=== PATIENT | female | born 2000 | race Caucasian/White ===

== ENCOUNTER 2018-08-15 12:30 | Inpatient (IN) | payer BC, OTHER ==
[2018-08-15] MEDS ORDERED: SODIUM CHLORIDE 0.9% 1,000 ML IV STA (13:14)
--- NOTE | 2018-08-15 13:19 | ED ---
General Adult HPI - General Chief complaint: Seizure Stated complaint: Seizure Source: family, EMS Mode of arrival: EMS Limitations: no limitations - History of Present Illness Initial comments: Dictation was produced using [employer] dictation software. please excuse any grammatical, word or spelling errors. Chief Complaint: 18-year-old female with past medical history of autism and hypercholesterolemia presents with episode of possible seizure. History of Present Illness: Patient's 18-year-old female presents with possible seizure. Patient's past medical history of autism. She takes Haldol and Adderall to control her symptoms. Patient does not have a history of seizures. Patient is not taking other medications. She was at home at her grandmother' s house when she was eating. She was sitting watching TV when she was noted to have several minute episode of staring off at the TV with convulsions of the right upper extremity. Patient was unconscious at that time. She did not fall. EMS was called. Patient's seizure-like activity spontaneously stopped. Patient is accompanied by family members. They note that she has not had any recent symptoms in the last 2-3 days. Patient otherwise has been at baseline. Patient has no complaints at this time. She does feel her baseline. The ROS documented in this emergency department record has been reviewed and confirmed by me. Those systems with pertinent positive or negative responses have been documented in the HPI. All other systems are other negative and/or noncontributory. PHYSICAL EXAM: General Impression: Alert and oriented x3, not in acute distress HEENT: Normocephalic atraumatic, extra-ocular movements intact, pupils equal and reactive to light bilaterally, mucous membranes moist. Cardiovascular: Heart regular rate and rhythm, S1&S2 audible, no murmurs, rubs or gallops Chest: Lungs clear to auscultation bilaterally, no rhonchi, no wheeze, no rales Abdomen: Bowel sounds present, abdomen soft, non-tender, non-distended, no organomegaly Musculoskeletal: Pulses present and equal in all extremities, no peripheral edema Motor: Power 5/5 bilaterally, no focal deficits noted Neurological: CN II-XII grossly intact, no focal motor or sensory deficits noted Skin: Intact with no visualized rashes Psych: Normal affect and mood ED course: 18 yo female past medical history of autism presents with clinical presentation consistent with new-onset seizure. All signs upon arrival shows tachycardia 124, rest of vital signs within normal limits. No neuro deficits noted. - Related Data Home Medications Medication Instructions Recorded Confirmed Calcium Carbonate [Calcium] 600 mg PO DAILY 08/15/18 08/15/18 Cyanocobalamin (Vitamin B-12) 1,000 mcg PO DAILY 08/15/18 08/15/18 [Vitamin B-12] Dextroamphetamine/Amphetamine 60 mg PO QAM 08/15/18 08/15/18 [Adderall Xr] Dextroamphetamine/Amphetamine 15 mg PO DAILY@1200 08/15/18 08/15/18 [Adderall] Diazepam 2 mg PO DAILY PRN 08/15/18 08/15/18 FLUoxetine HCL 40 mg PO HS 08/15/18 08/15/18 Iron 18 mg PO DAILY 08/15/18 08/15/18 Multivitamin [Multivitamins Adult 1 tab PO DAILY 08/15/18 08/15/18 Gummies] risperiDONE [RisperDAL] 2 mg PO BID 08/15/18 08/15/18 Allergies Allergy/AdvReac Type Severity Reaction Status Date / Time No Known Allergies Allergy Verified 08/15/18 14:18 Review of Systems ROS Statement: Those systems with pertinent positive or pertinent negative responses have been documented in the HPI. ROS Other: All systems not noted in ROS Statement are negative. Past Medical History Past Medical History: Hyperlipidemia Additional Past Medical History / Comment(s): autistic History of Any Multi-Drug Resistant Organisms: None Reported Past Surgical History: No Surgical Hx Reported Additional Past Surgical History / Comment(s): lip surgery. Past Psychological History: No Psychological Hx Reported Smoking Status: Never smoker Past Alcohol Use History: None Reported Past Drug Use History: None Reported General Exam Limitations: no limitations Course Vital Signs 08/15/18 12:32 Temperature 97.6 F Pulse Rate 124 H Respiratory 18 Rate Blood Pressure 112/68 O2 Sat by Pulse 96 Oximetry Medical Decision Making - Medical Decision Making Laboratory evaluation obtained. CBC, metabolic panel, urinalysis unremarkable. Computed tomography scan of the head is unremarkable. EKG is unremarkable. Patient be admitted for new onset seizure. Given history of mental developmental disability there is strong suspicion that she will need initiation of antiepileptic medications. Currently patient in stable medical condition. Neurology. Consult. EKG interpretation: Ventricular rate 90, normal sinus rhythm,. Interval 170, QRS 84, QTC 455. No [place] prolongation, no QTC prolongation, no ST or T-wave changes noted. Overall, this EKG is unremarkable - Lab Data Result diagrams: 08/15/18 13:25 08/15/18 13:25 Lab Results 08/15/18 08/15/18 08/15/18 Range/Units 13:25 13:25 15:43 WBC 5.2 (4.0-11.0) k/uL RBC 3.92 (3.80-5.40) m/uL Hgb 11.9 (11.4-16.0) gm/dL Hct 36.3 (34.0-46.0) % MCV 92.8 (80.0-100.0) fL MCH 30.3 (25.0-35.0) pg MCHC 32.7 (31.0-37.0) g/dL RDW 12.9 (11.5-15.5) % Plt Count 308 (150-450) k/uL Neutrophils % 61 % Lymphocytes % 25 % Monocytes % 6 % Eosinophils % 6 % Basophils % 0 % Neutrophils # 3.2 (1.3-7.7) k/uL Lymphocytes # 1.3 (1.0-4.8) k/uL Monocytes # 0.3 (0-1.0) k/uL Eosinophils # 0.3 (0-0.7) k/uL Basophils # 0.0 (0-0.2) k/uL Sodium 140 (137-145) mmol/L Potassium 4.3 (3.5-5.1) mmol/L Chloride 103 (98-107) mmol/L Carbon Dioxide 27 (22-30) mmol/L Anion Gap 10 mmol/L BUN 10 (7-17) mg/dL Creatinine 0.63 (0.52-1.04) mg/dL Est GFR (CKD-EPI)AfAm >90 (>60 ml/min/1.73 sqM) Est GFR (CKD-EPI)NonAf >90 (>60 ml/min/1.73 sqM) Glucose 103 H (74-99) mg/dL Calcium 9.8 (8.4-10.2) mg/dL Total Bilirubin 0.4 (0.2-1.3) mg/dL AST 25 (14-36) U/L ALT 27 (9-52) U/L Alkaline Phosphatase 68 (38-126) U/L Total Protein 7.0 (6.3-8.2) g/dL Albumin 4.3 (3.5-5.0) g/dL Urine Color Yellow Urine Appearance Turbid H (Clear) Urine pH 7.0 (5.0-8.0) Ur Specific [place] 1.017 (1.001-1.035) Urine Protein Trace H (Negative) Urine Glucose (UA) Negative (Negative) Urine Ketones Negative (Negative) Urine Blood Negative (Negative) Urine Nitrite Negative (Negative) Urine Bilirubin Negative (Negative) Urine Urobilinogen <2.0 (<2.0) mg/dL Ur Leukocyte Esterase Negative (Negative) Ur Squamous Epith Cells 8 H (0-4) /hpf Amorphous Sediment Few H (None) /hpf Hyaline Casts 35 H (0-2) /lpf Urine Mucus Many H (None) /hpf Disposition Clinical Impression: New onset seizure Disposition: ADMITTED IP TO THIS [facility] Condition: Fair Referrals: Jaskaran Merrill MD [Primary Care Provider] - 1-2 days Decision Time: 16:23
[2018-08-15 13:39] LABS: Basophils % (A) 0 %; Eosinophils # (A) 0.3 k/uL (0-0.7); Eosinophils % (A) 6 %; HCT 36.3 % (34.0-46.0); HGB 11.9 gm/dL (11.4-16.0); Lymphocytes # (A) 1.3 k/uL (1.0-4.8); Lymphocytes % (A) 25 %; MCH 30.3 pg (25.0-35.0); MCHC 32.7 g/dL (31.0-37.0); MCV 92.8 fL (80.0-100.0); Mean Platelet Volume 6.5; Monocytes # (A) 0.3 k/uL (0-1.0); Monocytes % (A) 6 %; Neutrophils # (A) 3.2 k/uL (1.3-7.7); Neutrophils % (A) 61 %; Platelet Count 308 k/uL (150-450); RBC 3.92 m/uL (3.80-5.40); RDW 12.9 % (11.5-15.5); WBC 5.2 k/uL (4.0-11.0)
[2018-08-15 13:54] LABS: ALT 27 U/L (9-52); AST 25 U/L (14-36); Albumin 4.3 g/dL (3.5-5.0); Alkaline Phosphatase 68 U/L (38-126); Anion Gap 10 mmol/L; Blood Urea Nitrogen 10 mg/dL (7-17); Calcium 9.8 mg/dL (8.4-10.2); Carbon Dioxide 27 mmol/L (22-30); Chloride 103 mmol/L (98-107); Glucose 103 mg/dL (74-99); Potassium 4.3 mmol/L (3.5-5.1); Sodium 140 mmol/L (137-145); Total Bilirubin 0.4 mg/dL (0.2-1.3)
--- NOTE | 2018-08-15 14:23 | CT ---
EXAMINATION TYPE: CT brain wo con DATE OF EXAM: 08/15/2018 COMPARISON: None HISTORY: seizure CT DLP: 1064.[address] of the brain was performed. The ventricles, basal cisterns and sulci overlying the cerebral convexities demonstrate a normal appe arance. There is no evidence for intracranial hemorrhage or sulcal effacement. No mass effects are seen. Osseous calvarium is intact. If symptoms persist consider MRI as clinically warranted. IMPRESSION: 1. No acute intracranial process is seen at this time.
[2018-08-15 16:13] LABS: Amorphous Sediment,Urine Few /hpf; Appearance,Urine Turbid (Clear); Bilirubin,Urine Negative (Negative); Blood,Urine Negative (Negative); Color,Urine Yellow; Glucose,Urine (UA) Negative (Negative); Hyaline Casts,Urine 35 /lpf (0-2); Ketones,Urine Negative (Negative); Leukocyte Esterase,Urine Negative (Negative); Mucus,Urine Many /hpf; Nitrite,Urine Negative (Negative); Protein,Urine Trace (Negative); Specific Gravity,Urine 1.017 (1.001-1.035); Squamous Epithelial Cell,Urine 8 /hpf (0-4); Urobilinogen,Urine <2.0 mg/dL (<2.0)
[2018-08-15] MEDS ORDERED: NALOXONE 0.4 MG/ML 1 ML VIAL IV PRN (16:20)
[2018-08-15] MEDS ORDERED: LORazepam 2 MG/ML INJ IV PRN (16:21)
[2018-08-15] MEDS ORDERED: ACETAMINOPHEN TAB 500 MG TAB PO PRN (16:50)
--- NOTE | 2018-08-15 18:35 | P.CNNES ---
History of Present Illness Consult date: 08/15/18 History of Present Illness: The patient is a 18-year-old woman with autism who presents to the hospital with new onset seizure. Her parents are at her bedside. They state that her uncle witnessed a seizure event. The patient was watching television when suddenly she stared off and her arms stiffened. She was unresponsive for a few minutes. EMS was called and she was brought to [facility]. The patient takes Haldol and Adderall and her mother reports that she normally gives her Adderall 60 mg every morning and 15 mg at noon. She has no history of seizures. Is no history of staring episodes. There was no oral trauma or incontinence. Patient has been on Trileptal up to 1 year ago when this was discontinued. It was given for mood disorder. He had a CT of the brain in the emergency room which did not show any acute process. She denies any headache dizziness weakness or any other neurologic complaint. Review of Systems ROS unobtainable: due to mental status Past Medical History Past Medical History: Hyperlipidemia Additional Past Medical History / Comment(s): autistic, has has first hepatitis A shot History of Any Multi-Drug Resistant Organisms: None Reported Past Surgical History: No Surgical Hx Reported Additional Past Surgical History / Comment(s): sx on lip at age 1 and 1 Past Anesthesia/Blood Transfusion Reactions: No Reported Reaction Smoking Status: Never smoker - Past Family History Mother Family Medical History: Asthma Father Family Medical History: No Reported History Medications and Allergies Home Medications Medication Instructions Recorded Confirmed Type Calcium Carbonate [Calcium] 600 mg PO DAILY 08/15/18 08/15/18 History Cyanocobalamin (Vitamin B-12) 1,000 mcg PO DAILY 08/15/18 08/15/18 History [Vitamin B-12] Dextroamphetamine/Amphetamine 60 mg PO QAM 08/15/18 08/15/18 History [Adderall Xr] Dextroamphetamine/Amphetamine 15 mg PO DAILY@1200 08/15/18 08/15/18 History [Adderall] Diazepam 2 mg PO DAILY PRN 08/15/18 08/15/18 History FLUoxetine HCL 40 mg PO HS 08/15/18 08/15/18 History Iron 18 mg PO DAILY 08/15/18 08/15/18 History Multivitamin [Multivitamins Adult 1 tab PO DAILY 08/15/18 08/15/18 History Gummies] risperiDONE [RisperDAL] 2 mg PO BID 08/15/18 08/15/18 History Allergies Allergy/AdvReac Type Severity Reaction Status Date / Time No Known Allergies Allergy Verified 08/15/18 14:18 Physical Examination - Vital Signs Vital Signs: Vital Signs Temp Pulse Resp BP Pulse Ox 08/15/18 16:54 103 H 16 116/78 100 08/15/18 15:30 90 12 98 08/15/18 13:30 118 H 20 107/70 97 08/15/18 13:00 107/69 96 08/15/18 12:47 98 08/15/18 12:32 97.6 F 124 H 18 112/68 96 Intake and Output 08/15/18 08/15/18 08/15/18 06:59 14:59 22:59 Other: Weight 69.4 kg - Constitutional General appearance: average body habitus, cooperative - Respiratory Respiratory: lungs clear - Cardiovascular Cardiovascular: regular rate, normal S1 - Neurologic Neurologic examination: Mental status she was awake she was alert she was oriented to person she was able to follow commands there is no a aphasia or dysarthria next Cranial nerve examination: Cranial nerves II through XII grossly intact next Motor examination: 5 out of 5 throughout Sensory examination: Intact to light touch Deep tendon reflexes: 2+ and symmetric next Gait: Not tested Results - Laboratory Findings CBC and BMP: 08/15/18 13:25 08/15/18 13:25 Abnormal Lab Findings: Abnormal Labs 08/15/18 08/15/18 13:25 15:43 Glucose 103 H Urine Appearance Turbid H Urine Protein Trace H Ur Squamous Epith Cells 8 H Amorphous Sediment Few H Hyaline Casts 35 H Urine Mucus Many H Assessment and Plan (1) New onset seizure Current Visit: Yes Status: Acute SNOMED Code(s): 42884885 Plan: The patient is a 18-year-old woman with history of new onset seizure. This is her first seizure. She is on a stimulant, Adderall. Recommend MRI of the brain as well as an EEG. Recommend gradual discontinuation of Adderall which can be done outpatient by her family doctor. Discussed with the parents options of treatment versus nontreatment at this time. Since this is her first seizure we can wait and see if she has a second seizure. Also it's possible that Adderall may have induced a seizure. Further recommendations based on results of MRI and EEG
--- NOTE | 2018-08-15 21:20 | MR ---
EXAMINATION TYPE: MR brain wo con DATE OF EXAM: 08/15/2018 COMPARISON: None HISTORY: New onset seizure, pt is autistic Standard multiplanar, multisequence MRI departmental protocol Multiplanar, multisequence images of the were acquired. Diffusion weighted imaging was performed. FINDINGS: Ventricles and sulci appear normal. There is no mass effect nor midline shift. There is no sign of intracranial hemorrhage. Orozco-white matter structures have fairly normal signal pattern. Ther e is no evidence of cerebral edema. Brainstem appears normal. Corpus callosum appears normal. Sella t urcica is normal. Cerebellum appears normal. There is no evidence of cortical infarct. IMPRESSION: Normal MR scan of the brain.
[2018-08-16 01:05] VITALS: RESP 20; TEMP 98
[2018-08-16 07:36] VITALS: BP 112/70; PULSE 101
[2018-08-16] MEDS ORDERED: DIAZEPAM 2 MG TAB PO PRN (08:42)
[2018-08-16] MEDS ORDERED: risperiDONE 2 MG TAB PO SCH (09:00)
[2018-08-16] MEDS ORDERED: AMPHETAMINE PO SCH (10:15)
[2018-08-16] MEDS ORDERED: DEXTROAMPHETAMINE PO SCH (10:15)
--- NOTE | 2018-08-16 14:26 | P.HPIM ---
History of Present Illness H&P Date: 08/16/18 Chief Complaint: Seizure HISTORY AND PHYSICAL AND DISCHARGE SUMMARY: This is a 18-year-old female patient of Dr. Merrill with past medical history of autism, hyperlipidemia. Apparently patient was watching TV and started having convulsions on the right upper extremity and was staring off for several minutes. Patient was unconscious at that time, no fall or injury. There was no incontinence or oral trauma EMS was contacted Patient presented to [facility] emergency center for evaluation. Her vital signs were all stable except she was tachycardic on presentation. CBC was within normal limits, CMP was normal except for glucose of 103. Urinalysis was turbid with nitrate and leukoesterase negative, hyaline casts 35, epithelial cells 8. EKG was a sinus rhythm with no acute ST-T wave changes. CAT scan of the brain showed no acute process. Patient was given a dose of Ativan, IV fluids and admitted to the [facility] floor and consult requested with neurology. Patient has been seen by Dr. Barboza with recommendations for MRI, EEG and gradually discontinue Adderall which can be done as an outpatient by her family doctor. Since this is her first seizure and it is possible that Adderall may have induced seizure, may hold on anti-seizure medication. MRI of the brain came back normal. Plan is to discontinue her afternoon Adderall dose for now and continue the Adderall XR only as scheduled in the morning. Patient has been seizure free since admission. Patient will be discharged home today in stable condition. Discharge Medication List Calcium Carbonate [Calcium] 600 mg PO DAILY 08/15/18 [History] Cyanocobalamin (Vitamin B-12) [Vitamin B-12] 1,000 mcg PO DAILY 08/15/18 [ History] Dextroamphetamine/Amphetamine [Adderall Xr] 60 mg PO QAM 08/15/18 [History] Diazepam 2 mg PO DAILY PRN 08/15/18 [History] FLUoxetine HCL 40 mg PO HS 08/15/18 [History] Iron 18 mg PO DAILY 08/15/18 [History] Multivitamin [Multivitamins Adult Gummies] 1 tab PO DAILY 08/15/18 [History] risperiDONE [RisperDAL] 1 mg PO 1700 08/15/18 [History] risperiDONE [RisperDAL] 2 mg PO DAILY 08/15/18 [History] Review of Systems ROS unobtainable: due to mental status Past Medical History Past Medical History: Hyperlipidemia Additional Past Medical History / Comment(s): autistic, has has first hepatitis A shot History of Any Multi-Drug Resistant Organisms: None Reported Past Surgical History: No Surgical Hx Reported Additional Past Surgical History / Comment(s): sx on lip at age 1 and 1 Past Anesthesia/Blood Transfusion Reactions: No Reported Reaction Smoking Status: Never smoker - Past Family History Mother Family Medical History: Asthma Father Family Medical History: No Reported History Medications and Allergies Home Medications Medication Instructions Recorded Confirmed Type Calcium Carbonate [Calcium] 600 mg PO DAILY 08/15/18 08/15/18 History Cyanocobalamin (Vitamin B-12) 1,000 mcg PO DAILY 08/15/18 08/15/18 History [Vitamin B-12] Dextroamphetamine/Amphetamine 60 mg PO QAM 08/15/18 08/15/18 History [Adderall Xr] Diazepam 2 mg PO DAILY PRN 08/15/18 08/15/18 History FLUoxetine HCL 40 mg PO HS 08/15/18 08/15/18 History Iron 18 mg PO DAILY 08/15/18 08/15/18 History Multivitamin [Multivitamins Adult 1 tab PO DAILY 08/15/18 08/15/18 History Gummies] risperiDONE [RisperDAL] 1 mg PO 1700 08/15/18 08/15/18 History risperiDONE [RisperDAL] 2 mg PO DAILY 08/15/18 08/15/18 History Allergies Allergy/AdvReac Type Severity Reaction Status Date / Time No Known Allergies Allergy Verified 08/15/18 14:18 Physical Exam Vitals: Vital Signs Temp Pulse Pulse Resp BP BP Pulse Ox 08/16/18 07:00 98.0 F 101 H 20 112/70 95 08/15/18 23:00 98.0 F 100 20 101/62 96 08/15/18 16:54 103 H 16 116/78 100 08/15/18 15:30 90 12 98 08/15/18 13:30 118 H 20 107/70 97 08/15/18 13:00 107/69 96 08/15/18 12:47 98 08/15/18 12:32 97.6 F 124 H 18 112/68 96 Intake and Output 0108/16/18 08/16/18 22:59 06:59 14:59 Intake Total 400 475 Balance 400 475 Intake: Oral 400 475 Other: # Voids 1 2 Gen: This is a 18-year-old female. She is resting in bed appears to be comfortable and in no acute distress. HEENT: Head is atraumatic, normocephalic. Pupils equal, round. Sclerae is anicteric. NECK: Supple. No JVD. No lymphadenopathy. No thyromegaly. LUNGS: Clear to auscultation. No wheezes or rhonchi. No intercostal retractions. HEART: Regular rate and rhythm. No murmur. ABDOMEN: Soft. Bowel sounds are present. No masses. No tenderness. EXTREMITIES: No pedal edema. No calf tenderness. NEUROLOGICAL: Patient is awake, alert and oriented x3. Cranial nerves 2 through 12 are grossly intact. Results CBC & Chem 7: 08/15/18 13:25 08/15/18 13:25 Labs: Abnormal Lab Results - Last 24 Hours (Table) 08/15/18 08/15/18 Range/Units 13:25 15:43 Glucose 103 H (74-99) mg/dL Urine Appearance Turbid H (Clear) Urine Protein Trace H (Negative) Ur Squamous Epith Cells 8 H (0-4) /hpf Amorphous Sediment Few H (None) /hpf Hyaline Casts 35 H (0-2) /lpf Urine Mucus Many H (None) /hpf Thrombosis Risk Factor Assmnt - DVT/VTE Prophylaxis DVT/VTE Prophylaxis: Mechanical Prophylaxis ordered - Choose All That Apply Any of the Below Risk Factors Present?: No Assessment and Plan Plan: 1. First-time seizure possibly induced by Adderall. CT of the brain, MRI as above. EEG pending. Consult with neurology appreciated. Patient to be weaned off Adderall as an outpatient. 2. Autism, stable. Continue Prozac 40 mg at bedtime, Risperdal 2 mg daily and 1 mg at 5 PM, Valium 2 mg daily as needed for anxiety. 3. Hyperlipidemia, stable Patient will be admitted to the hospital for a minimum of 1 night stay. Discharge plan: Return home Impression and plan of care have been directed as dictated by the signing physician. Jessica Mendes nurse practitioner acting as scribe for signing physician.
[2018-08-16] MEDS ORDERED: risperiDONE 1 MG TAB PO SCH (17:00)
--- NOTE | 2018-08-16 17:59 | EEG ---
ELECTROENCEPHALOGRAM REPORT DATE OF EE08/16/2018 ELECTROENCEPHALOGRAPHIC EXAMINATION REPORT: INDICATION FOR EXAMINATION: This patient is a 18-year-old female being evaluated for new-onset seizures. Patient had episode of unresponsiveness for several minutes. Patient has history of autism. AGE: [age]. EEG FINDINGS: A routine 21-channel awake digital EEG recording was accomplished utilizing the 10-20 international system with bipolar and referential montages. The background activity in the most alert resting state consists of a low to medium amplitude, fairly well developed and well sustained 7 Hz activity over the posterior head regions. This posterior rhythm attenuates to eye opening. There is a moderate amount of low amplitude 18-20 Hz beta activity seen maximally over the anterior head regions. Muscle and movement artifact was observed on several occasions during the tracing. Hyperventilation failed to add any additional information to the tracing. No further activation was noted. Photic stimulation at flash frequencies of 2-30 Hz produced a minimal occipital driving response. The main feature of this tracing is the occurrence on several epochs of small temporal sharp waves in the left hemisphere. This is noted during photic stimulation as well. Occasional right temporal sharp wave was also noted. IMPRESSION: This EEG is abnormal due to the occurrence of left temporal sharp waves suggesting probable underlying seizure disorder of deep level origin. If clinically indicated, a follow-up EEG is recommended. Clinical correlation is recommended. MMODL / IJN: [id number] /
[2018-08-16] MEDS ORDERED: FLUoxetine HCL 20 MG CAP PO SCH (21:00)
== END 2018-08-16 13:28 | disposition home or self-care (01) | DRG 101 ==
LOC: EEVIPCON 12:30 → EC 12:30 → 4MS4W 16:20
PROVIDERS: ADMIT Internal Medicine; ATTEND Internal Medicine
DX: R56.9 Unspecified convulsions (principal); F84.0 Autistic disorder; T43.625A Adverse effect of amphetamines, initial encounter; E78.00 Pure hypercholesterolemia, unspecified; E78.5 Hyperlipidemia, unspecified; Z79.899 Other long term (current) drug therapy; Z82.5 Family history of asthma and other chronic lower respiratory diseases
CPT/HCPCS: 36415; 70450; 70551; 80053; 81001; 85025; 93005; 95816; 96360; 99285

== ENCOUNTER 2022-04-23 09:39 | Emergency (ER) | payer BC, OTHER ==
[2022-04-23 09:51] VITALS: TEMP 98.6
[2022-04-23] MEDS ORDERED: levETIRAcetam IV 1,000 MG in SALINE 1 100ML.BAG IVPB STA (09:53)
--- NOTE | 2022-04-23 09:55 | ED ---
General Adult HPI - General Chief complaint: Seizure Stated complaint: seizure Time Seen by Provider: 04/23/22 09:42 Source: patient, family, EMS, RN notes reviewed Mode of arrival: EMS Limitations: no limitations - History of Present Illness Initial comments: Patient is a pleasant 21-year-old female presenting to the emergency Department with witnessed seizure. Episode lasted less than 5 minutes with generalized tonic-clonic activity. Mother provides majority of history. Patient does have history of learning disability similar to autism. Patient states she feels fine at this time and has no complaints. Other confirms that she is acting normal at this time. Patient was a little bit confused following the episode. No injury. Patient does have history of presumed a seizure around 6 years ago that is described similar to an absence seizure however only had one. Patient was previously on anticonvulsant medication however this has been discontinued. - Related Data Home Medications Medication Instructions Recorded Confirmed Calcium Carbonate [Calcium] 600 mg PO DAILY 08/15/18 08/15/18 Cyanocobalamin (Vitamin B-12) 1,000 mcg PO DAILY 08/15/18 08/15/18 [Vitamin B-12] Dextroamphetamine/Amphetamine 60 mg PO QAM 08/15/18 08/15/18 [Adderall Xr] FLUoxetine HCL 40 mg PO HS 08/15/18 08/15/18 Iron 18 mg PO DAILY 08/15/18 08/15/18 Multivitamin [Multivitamins Adult 1 tab PO DAILY 08/15/18 08/15/18 Gummies] diazePAM 2 mg PO DAILY PRN 08/15/18 08/15/18 risperiDONE [RisperDAL] 1 mg PO 1700 08/15/18 08/15/18 risperiDONE [RisperDAL] 2 mg PO DAILY 08/15/18 08/15/18 Allergies Allergy/AdvReac Type Severity Reaction Status Date / Time No Known Allergies Allergy Verified 08/15/18 14:18 Review of Systems ROS Statement: Those systems with pertinent positive or pertinent negative responses have been documented in the HPI. ROS Other: All systems not noted in ROS Statement are negative. Constitutional: Denies: fever Eyes: Denies: eye pain ENT: Denies: ear pain Respiratory: Denies: cough Cardiovascular: Denies: chest pain, palpitations Endocrine: Denies: fatigue Gastrointestinal: Denies: abdominal pain Genitourinary: Denies: dysuria Musculoskeletal: Denies: back pain Skin: Denies: rash Neurological: Reports: as per HPI. Denies: headache, weakness, confusion Past Medical History Past Medical History: Hyperlipidemia Additional Past Medical History / Comment(s): autistic, has has first hepatitis A shot History of Any Multi-Drug Resistant Organisms: None Reported Past Surgical History: No Surgical Hx Reported Additional Past Surgical History / Comment(s): sx on lip at age 1 and 1 Past Anesthesia/Blood Transfusion Reactions: No Reported Reaction Past Psychological History: No Psychological Hx Reported Smoking Status: Never smoker Past Alcohol Use History: None Reported Past Drug Use History: None Reported - Past Family History Mother Family Medical History: Asthma Father Family Medical History: No Reported History General Exam Limitations: no limitations General appearance: alert, in no apparent distress Head exam: Present: atraumatic Eye exam: Present: normal appearance, PERRL, EOMI ENT exam: Present: normal oropharynx Neck exam: Present: normal inspection. Absent: tenderness Respiratory exam: Present: normal lung sounds bilaterally Cardiovascular Exam: Present: regular rate, normal rhythm GI/Abdominal exam: Present: soft. Absent: tenderness Extremities exam: Present: normal inspection Neurological exam: Present: alert, oriented X3, CN II-XII intact. Absent: motor sensory deficit Expanded Neurological exam: Present: protecting the airway Patient oriented to: Present: person, place, time Speech: Present: fluid speech Cranial nerves: EOM's Intact: Normal Motor strength exam: RUE: 5, LUE: 5, RLE: 5, LLE: 5 Eye Response: (4) open spontaneously Motor Response: (6) obeys commands Verbal Response: (5) oriented Psychiatric exam: Present: normal affect, normal mood Skin exam: Present: normal color Course Vital Signs 04/23/22 09:42 Temperature 98.6 F Pulse Rate 110 H Respiratory 16 Rate Blood Pressure 119/76 O2 Sat by Pulse 98 Oximetry - Reevaluation(s) Reevaluation #1: 04/23/22 11:03 Patient reevaluated and resting comfortably in bed, exam unchanged. Family re quests ox ramona which patient previously has been on rather than Keppra and they do have available. They will provided at this time. They also do see Dr. Barboza for neurologist and would like to go home if testing is otherwise negative as patient has been through this previously. They are confident they can do close follow-up. EKG Findings - EKG Comments: EKG Findings:: Sinus tachycardia 100. ME 148. QRS 89. QT 349. QTC 406. Normal axis. Normal QRS. No acute ST change. Medical Decision Making - Medical Decision Making Patient again reevaluated. Patient and family updated. - Lab Data Result diagrams: 04/23/22 09:58 04/23/22 09:58 Lab Results 04/23/22 04/23/22 04/23/22 Range/Units 09:58 09:58 09:58 WBC 4.6 (3.8-10.6) k/uL RBC 3.96 (3.80-5.40) m/uL Hgb 12.5 (11.4-16.0) gm/dL Hct 38.3 (34.0-46.0) % MCV 96.8 (80.0-100.0) fL MCH 31.6 (25.0-35.0) pg MCHC 32.7 (31.0-37.0) g/dL RDW 12.8 (11.5-15.5) % Plt Count 291 (150-450) k/uL MPV 7.6 Neutrophils % 48 % Lymphocytes % 36 % Monocytes % 6 % Eosinophils % 8 % Basophils % 1 % Neutrophils # 2.2 (1.3-7.7) k/uL Lymphocytes # 1.7 (1.0-4.8) k/uL Monocytes # 0.3 (0-1.0) k/uL Eosinophils # 0.4 (0-0.7) k/uL Basophils # 0.0 (0-0.2) k/uL Sodium 139 (137-145) mmol/L Potassium 3.9 (3.5-5.1) mmol/L Chloride 104 (98-107) mmol/L Carbon Dioxide 22 (22-30) mmol/L Anion Gap 13 mmol/L BUN 6 L (7-17) mg/dL Creatinine 0.57 (0.52-1.04) mg/dL Est GFR (CKD-EPI)AfAm >90 (>60 ml/min/1.73 sqM) Est GFR (CKD-EPI)NonAf >90 (>60 ml/min/1.73 sqM) Glucose 107 H (74-99) mg/dL Calcium 9.2 (8.4-10.2) mg/dL Magnesium 2.1 (1.6-2.3) mg/dL Total Bilirubin 0.6 (0.2-1.3) mg/dL AST 22 (14-36) U/L ALT 14 (4-34) U/L Alkaline Phosphatase 58 (38-126) U/L Total Protein 6.5 (6.3-8.2) g/dL Albumin 4.5 (3.5-5.0) g/dL Urine Color Light Yellow Urine Appearance Clear (Clear) Urine pH 5.5 (5.0-8.0) Ur Specific [place] 1.017 (1.001-1.035) Urine Protein 1+ H (Negative) Urine Glucose (UA) Negative (Negative) Urine Ketones 1+ H (Negative) Urine Blood Negative (Negative) Urine Nitrite Negative (Negative) Urine Bilirubin Negative (Negative) Urine Urobilinogen <2.0 (<2.0) mg/dL Ur Leukocyte Esterase Negative (Negative) Urine RBC 1 (0-5) /hpf Urine WBC 1 (0-5) /hpf Ur Squamous Epith Cells 2 (0-4) /hpf Urine Bacteria Rare H (None) /hpf Hyaline Casts 4 H (0-2) /lpf Urine Mucus Rare H (None) /hpf Urine Opiates Screen Not Detected (NotDetected) Ur Oxycodone Screen Not Detected (NotDetected) Urine Methadone Screen Not Detected (NotDetected) Ur Propoxyphene Screen Not Detected (NotDetected) Ur Barbiturates Screen Not Detected (NotDetected) U Tricyclic Antidepress Not Detected (NotDetected) Ur Phencyclidine Scrn Not Detected (NotDetected) Ur Amphetamines Screen Detected H (NotDetected) U Methamphetamines Scrn Not Detected (NotDetected) U Benzodiazepines Scrn Not Detected (NotDetected) Urine Cocaine Screen Not Detected (NotDetected) U Marijuana (THC) Screen Not Detected (NotDetected) Serum Alcohol <10 mg/dL Disposition Clinical Impression: Generalized seizure Disposition: HOME SELF-CARE Condition: Stable Instructions (If sedation given, give patient instructions): Seizure/Epilepsy Discharge Instructions & Follow-Up, Recurrent Seizures in Adults (ED) Additional Instructions: Please continue anticonvulsant medication. Please follow-up with your neurologist being of the week. Please also follow-up with your primary care physician in the week. Return for seizures, fever or illness, change in mental status, worsening symptoms or any other concerns. Is patient prescribed a controlled substance at d/c from ED?: No Referrals: Jaskaran Merrill MD [Primary Care Provider] - 1-2 days Time of Disposition: 11:45
[2022-04-23 10:29] LABS: Appearance,Urine Clear (Clear); Bacteria,Urine Rare /hpf; Basophils % (A) 1 %; Bilirubin,Urine Negative (Negative); Blood,Urine Negative (Negative); Color,Urine Light Yellow; Eosinophils # (A) 0.4 k/uL (0-0.7); Eosinophils % (A) 8 %; Glucose,Urine (UA) Negative (Negative); HCT 38.3 % (34.0-46.0); HGB 12.5 gm/dL (11.4-16.0); Hyaline Casts,Urine 4 /lpf (0-2); Ketones,Urine 1+ (Negative); Leukocyte Esterase,Urine Negative (Negative); Lymphocytes # (A) 1.7 k/uL (1.0-4.8); Lymphocytes % (A) 36 %; MCH 31.6 pg (25.0-35.0); MCHC 32.7 g/dL (31.0-37.0); MCV 96.8 fL (80.0-100.0); Mean Platelet Volume 7.6; Monocytes # (A) 0.3 k/uL (0-1.0); Monocytes % (A) 6 %; Mucus,Urine Rare /hpf; Neutrophils # (A) 2.2 k/uL (1.3-7.7); Neutrophils % (A) 48 %; Nitrite,Urine Negative (Negative); PH, Urine 5.5 (5.0-8.0); Platelet Count 291 k/uL (150-450); Protein,Urine 1+ (Negative); RBC 3.96 m/uL (3.80-5.40); RBC,Urine 1 /hpf (0-5); RDW 12.8 % (11.5-15.5); Specific Gravity,Urine 1.017 (1.001-1.035); Squamous Epithelial Cell,Urine 2 /hpf (0-4); Urobilinogen,Urine <2.0 mg/dL (<2.0); WBC 4.6 k/uL (3.8-10.6); WBC,Urine 1 /hpf (0-5)
[2022-04-23 10:40] LABS: Amphetamine Screen,Urine Detected (NotDetected); Barbiturate Screen,Urine Not Detected (NotDetected); Benzodiazepines Screen,Urine Not Detected (NotDetected); Cocaine Screen,Urine Not Detected (NotDetected); Methadone Screen, Urine Not Detected (NotDetected); Opiate Screen,Urine Not Detected (NotDetected); Oxycodone Screen, Urine Not Detected (NotDetected); Phencyclidine Screen,Urine Not Detected (NotDetected); Tricyclic Antidepressant,Urine Not Detected (NotDetected); Urn Cannabinoid Scrn Not Detected (NotDetected)
[2022-04-23 10:44] LABS: ALT 14 U/L (4-34); AST 22 U/L (14-36); Alcohol <10 mg/dL; Alkaline Phosphatase 58 U/L (38-126); Blood Urea Nitrogen 6 mg/dL (7-17); Calcium 9.2 mg/dL (8.4-10.2); Chloride 104 mmol/L (98-107); Glucose 107 mg/dL (74-99); Magnesium 2.1 mg/dL (1.6-2.3); Potassium 3.9 mmol/L (3.5-5.1); Sodium 139 mmol/L (137-145); Total Bilirubin 0.6 mg/dL (0.2-1.3); Total Protein 6.5 g/dL (6.3-8.2)
[2022-04-23 10:45] LABS: African American GFR (CKD) >90 (>60 ml/min/1.73 sqM); Albumin 4.5 g/dL (3.5-5.0); Anion Gap 13 mmol/L; Carbon Dioxide 22 mmol/L (22-30); Non-African American GFR(CKD) >90 (>60 ml/min/1.73 sqM)
--- NOTE | 2022-04-23 11:29 | CT ---
EXAMINATION TYPE: CT brain wo con DATE OF EXAM: 04/23/2022 COMPARISON: Prior CT and MRI reports 2019. HISTORY: Seizure CT DLP: 1088 mGycm. Automated Exposure Control for Dose Reduction was Utilized. TECHNIQUE: CT scan of the head is performed without contrast. FINDINGS: There is no acute intracranial hemorrhage, mass effect, or midline shift identified. The ventricles and sulci are within normal limits in size. Orozco-white matter differentiation is maintain ed. Cerumen in the bilateral external carotid canals is felt present. Nasal septum deviated to right of midline. The globes are intact and the visualized sinuses are clear. IMPRESSION: No acute intracranial hemorrhage or midline shift is seen.
[2022-04-23 12:30] VITALS: BP 122/76; PULSE 91; RESP 18
== END 2022-04-23 12:30 | disposition home or self-care (01) ==
LOC: EC 09:39
DX: G40.409 Other generalized epilepsy and epileptic syndromes, not intractable, without status epilepticus (principal); E78.5 Hyperlipidemia, unspecified; Z79.899 Other long term (current) drug therapy
CPT/HCPCS: 36415; 70450; 80053; 80306; 80320; 81001; 83735; 85025; 93005; 99285

== ENCOUNTER → 2024-11-03 | Outpatient (CLI) | payer BC, OTHER ==
--- NOTE | 2024-11-03 10:47 | USB ---
Reason for Exam: High risk patient. Technique: Method: Whole Breast Handheld. Findings: The whole breast of both breasts, the axilla of both breasts and the retroareolar of both breasts were scanned. A complete US of all four quadrants of the breast and axilla, retro-areolar region were reviewed. No solid or cystic masses are identified.. Benign appearing bilateral axillary lymph node. Overall Assessment: Benign, BI-RAD 2 Management: Screening Mammogram of both breasts at age 38. A clinical breast exam by your physician is recommended on an annual basis and results should be correlated with mammographic findings. This exam should not preclude additional follow-up of suspicious palpable abnormalities. Results were given to the patient verbally at the time of exam. [facility], , 11/03/2024 10:44 AM. Electronically signed and approved by: Jaskaran Epperson M.D. Radiologis
== END | disposition home or self-care (01) ==
LOC: RADUSWWP 10:05
PROVIDERS: ATTEND Internal Medicine Geriatric Medicine
DX: Z80.3 Family history of malignant neoplasm of breast (principal)

== ENCOUNTER → 2025-01-30 | Outpatient (CLI) | payer BC, OTHER ==
--- NOTE | 2025-01-30 10:39 | US ---
EXAMINATION TYPE: US thyroid st tissue head/neck DATE OF EXAM: 01/30/2025 COMPARISON: NONE CLINICAL INDICATION: Female, 24 years old with history of E07.9 DISORDER OF THYROID, UNSPECIFIED; Pt states doctor felt the thyroid was enlarged TECHNIQUE: Grayscale and color Doppler imaging of the thyroid gland. FINDINGS: GLAND SIZE: Right Lobe: 4.3 x 1.5 x 1.0 cm Overall Parenchyma: homogeneous Left Lobe: 4.4 x 1.7 x 1.0 cm Overall Parenchyma: homogeneous Isthmus Thickness: 0.14 cm NODULES RIGHT: # of nodules measured on right: 0 LEFT: # of nodules measured on left: 0 ISTHMUS: # of nodules measured in the isthmus: 0 Bilateral neck scanned, no evidence of lymphadenopathy. IMPRESSION: Unremarkable study Highest TI-RADS level nodule reported: 2017 ACR TI-RADS LEVEL: TI-RADS assessment score and recommendation for follow-up based on appropriate scoring and treatment protocols. TR1 Benign No FNA TR2 Not suspicious No FNA TR3: If nodule size is ? 2.5 cm, FNA is recommended. If nodule size is ? 1.5 cm, follow-up imaging at 1, 3, and 5 years is recommended. TR4: If nodule size is ? 1.5 cm, FNA is recommended. If nodule size is ? 1.0 cm, follow-up imaging at 1, 2, 3, and 5 years is recommended. TR5: If nodule size is ? 1.0 cm, FNA is recommended. If nodule size is ? 0.5 cm, annual follow-up for up to 5 years is recommended. TR 1 thyroid nodules have a 0.3 % risk of malignancy. TR 2 thyroid nodules have a 1.5 % risk of malignancy. TR 3 thyroid nodules have a 4.8 % risk of malignancy. TR 4 thyroid nodules have a 9.1 % risk of malignancy. TR 5 thyroid nodules have a 35 % risk of malignancy. [email or web address] [facility], , 01/30/2025 10:36 AM
== END | disposition home or self-care (01) ==
LOC: RADUSWWP 09:54
PROVIDERS: ATTEND Internal Medicine Geriatric Medicine
DX: E07.9 Disorder of thyroid, unspecified (principal)
CPT/HCPCS: 76536